=== PATIENT | male | born 1990 | race African-American/Black ===

== ENCOUNTER 2018-08-09 11:09 | Emergency (ER) | payer BC ==
[~2018-08-09] VITALS: Ht 182.9 cm; Wt 78.9 kg
[2018-08-09] MEDS ORDERED: MOBIC15 MG PO (11:55)
[2018-08-09 12:25] VITALS: BP 120/69
== END 2018-08-09 12:30 | disposition home or self-care (01) ==
LOC: ER 11:09
DX: S63.682A Other sprain of left thumb, initial encounter (principal); S80.02XA Contusion of left knee, initial encounter; Z91.018 Allergy to other foods; W23.1XXA Caught, crushed, jammed, or pinched between stationary objects, initial encounter; Y93.67 Activity, basketball; Y92.89 Other specified places as the place of occurrence of the external cause; Y99.8 Other external cause status